=== PATIENT | female | born 1980 | race Caucasian/White ===

== ENCOUNTER 2017-10-12 21:33 | Emergency (ER) | payer OTHER ==
--- OUTSIDE RECORDS SUMMARY | 2017-10-12 22:30 | XMS REPORT ---
:1980 External Reference #:[id number] Author Organization [facility] Address [address] [place] [address] [place] [address] Phone [phone] Care Team Providers Name Role Phone Jourdan Quintana MD Primary Care Physician Unavailable Payers Type Date Identification Numbers Payment Provider Subscriber Medicaid Expires: 2015 Policy Number: [id number] Medicaid Leyda Gomez Group Name: 1 1 [address] PayID: [id number] [place] [address] Commercial Effective: 2015 Policy Number: [id number] [place] Leyda Gomez Group Name: [id number] [address] PayID: [id number] [place] [address] Problems Date Description Provider Status Onset: 12/14/2016 Low back pain Jourdan Quintana M.D. Active Onset: 12/14/2016 Epistaxis Jourdan Quintana M.D. Active Onset: 12/14/2016 Polyarthropathy Jourdan Quintana M.D. Active Onset: 12/14/2016 Malaise and fatigue Jourdan Quintana M.D. Active Onset: 01/25/2017 Mild recurrent major depression Jourdan Quintana M.D. Active Onset: 09/20/2017 Pain in female pelvis Konrad Samuels M.D. 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 ETOH Use Denies alcohol use Recreational Drug Use Denies Drug Use Smoking Patient is a former smoker Smoking Light tobacco smoker (10 or pt reports 2-3 cigaretts a fewer cigarettes/day) day while in college, quit 2009 Daily Caffeine Consumes on average 3 cups of regular coffee per day Exercise Type/Frequency Does not exercise due to abdominal pain Allergies, Adverse Reactions, Alerts Date Description Reaction Status Severity Comments 09/20/2017 Estrogens joint swelling, agitation active 09/20/2017 Opium migraine, itching active 12/14/2016 NKDA inactive Medications Medication Date Status Form Strength Qnty SIG Indications Ordering Provider Medical Active prn. for Jourdan Marijuana 017 sleep Pachikara, and pain M.D. Adderall Ir Active 30mg 1 po 3 Unknown 000 times a day Thyromin Hx Q hs Jourdan 017 - Pachikara, M.D. 018 Loratadine 0 Hx Tablets 10mg Unknown Allergy Relief 000 - Dispers 018 Vitamin B /0 Hx Tablets 1 by Unknown Complex 000 - mouth every 018 day Glucosamine 00/0 Hx Tablets 2 qd Unknown Chondroitin 000 - Complex Advanced Plus 018 MSM Vitamin C 00/0 Hx Tablets 500mg 1 by Unknown 000 - mouth every 018 day Magnesium Oxide 00/0 Hx Capsules 400mg 1 by Unknown 000 - mouth every 018 day MSM 00/00/0 Hx Capsules 500mg Unknown 000 - 018 Vital Signs Date Vital Result Comment 09/20/2017 Height 68 inches 5'8" Weight 126.00 lb w/ shoes Heart Rate 126 /min BP Systolic Sitting 148 mmHg lue rg cuff BP Diastolic Sitting 78 mmHg lue rg cuff BMI (Body Mass Index) 19.2 kg/m2 01/25/2017 Height 68 inches 5'8" Weight 137.00 lb Heart Rate 101 /min BP Systolic 122 mmHg BP Diastolic 80 mmHg Body Temperature 97.6 F O2 % BldC Oximetry 98 % BMI (Body Mass Index) 20.8 kg/m2 12/14/2016 Weight 129.25 lb Heart Rate 112 /min BP Systolic 140 mmHg BP Diastolic 80 mmHg O2 % BldC Oximetry 98 % Results Test Date Test Result H/L Range Note Laboratory test finding 12/14/2016 Rheumatoid Factor <15 IU/mL <15 1 Lyme Disease Serology Negative Negative 2 Erythrocyte Sed Rate 9 mm/Hr 0-14 Connective Tissue Panel 12/14/2016 Anti-Nuclear Antibody 0.3 U 3 Cyclic Citrullinated Peptide <15.6 U 4 Interpretation See Comment 5 Comp Metabolic Panel 12/14/2016 Sodium 135 mmol/L 133-145 Potassium 3.9 mmol/L 3.5-5.0 Chloride 101 mmol/L 101-111 Co2 Carbon Dioxide 28 mmol/L 22-32 Anion Gap 6 mmol/L 2-11 Glucose 93 mg/dL 70-100 Blood Urea Nitrogen 8 mg/dL 6-24 Creatinine 0.76 mg/dL 0.51-0.95 BUN/Creatinine Ratio 10.5 8-20 Calcium 9.4 mg/dL 8.6-10.3 Total Protein 7.0 g/dL 6.4-8.9 Albumin 4.4 g/dL 3.2-5.2 Globulin 2.6 g/dL 2-4 Albumin/Globulin Ratio 1.7 1-3 Total Bilirubin 0.70 mg/dL 0.2-1.0 Alkaline Phosphatase 40 U/L 34-104 Alt 15 U/L 7-52 Ast 24 U/L 13-39 Egfr Non- 87.1 >60 Egfr 112.0 >60 6 CBC Auto Diff 12/14/2016 White Blood Count 7.0 10^3/uL 3.5-10.8 Red Blood Count 4.05 10^6/uL 4.0-5.4 Hemoglobin 12.6 g/dL 12.0-16.0 Hematocrit 36 % 35-47 Mean Corpuscular Volume 89 fL 80-97 Mean Corpuscular Hemoglobin 31 pg 27-31 Mean Corpuscular HGB Conc 35 g/dL 31-36 Red Cell Distribution Width 13 % 10.5-15 Platelet Count 213 10^3/uL 150-450 Mean Platelet Volume 10 um3 7.4-10.4 Abs Neutrophils 4.8 10^3/uL 1.5-7.7 Abs Lymphocytes 1.6 10^3/uL 1.0-4.8 Abs Monocytes 0.5 10^3/uL 0-0.8 Abs Eosinophils 0.1 10^3/uL 0-0.6 Abs Basophils 0.1 10^3/uL 0-0.2 Abs Nucleated RBC 0 10^3/uL Granulocyte % 67.8 % 38-83 Lymphocyte % 23.4 % Low 25-47 Monocyte % 7.0 % 1-9 Eosinophil % 0.9 % 0-6 Basophil % 0.9 % 0-2 Nucleated Red Blood Cells % 0 Vitamin B12 And Folate Serum 12/14/2016 Vitamin B12 558 pg/mL 180-914 7 Folic Acid (Folate) > 20.00 ng/mL >3.99 Laboratory test finding 12/14/2016 TSH (Thyroid Stim Horm) 0.84 mcIU/mL 0.34-5.60 1 Test Performed by: [facility] - [address] [address] 2 Serologic response to B. burgdorferi infection is not detected, but cannot rule out early infection during which low or undetectable antibody levels to B. burgdorferi may be present. If clinically indicated, a new serum specimen should be submitted in 7-14 days. Test Performed by: [facility] - [place] [employer] [facility] [address] [place] [address] 3 REFERENCE VALUE <=1.0 (Negative) 4 REFERENCE VALUE <20.0 (Negative) 5 Tests for antibodies to dsDNA and BROOKE antigens are not performed automatically unless the YOSSI result is > or= 3.0 U. Studies performed at [facility] indicate that positive YOSSI results <3.0 U are rarely accompanied by positive second order tests. Test Performed by: [facility] - [address] [address] 6 Because ethnic data is not always readily available, this report includes an eGFR for both -Americans and non- Americans. The National Kidney Disease Education Program (NKDEP) does not endorse the use of the MDRD equation for patients that are not between the ages of 18 and 70, are , have extremes of body size, muscle mass, or nutritional status, or are non- or non-. According to the National Kidney Foundation, irrespective of diagnosis, the stage of the disease is based on the level of kidney function: Stage Description GFR(mL/min/1.73 m(2)) 1 Kidney damage with normal or decreased GFR 90 2 Kidney damage with mild decrease in GFR 60-89 3 Moderate decrease in GFR 30-59 4 Severe decrease in GFR 15-29 5 Kidney failure <15 (or dialysis) 7 Normal Range 180 to 914 Indeterminate Range 145 to 180 Deficient Range <145 Procedures Description No Information Encounters Type Date Location Provider CPT E/M Dx Office Visit 01/25/2017 4:00p [facility] Jourdan Quintana, [address] M54.5 - Russ Ashraf F33.0 Office Visit 12/14/2016 2:00p [facility] Jourdan Quintana, [address] M54.5 - Russ Ashraf R04.0 M13.0 R53.83 Office Visit 09/11/2015 1:53p [facility]pc Alice Turner, [address] F90.0 Hospitalists N.P. Office Visit 09/10/2015 1:53p [facility], Jessica [address] R51 Hospitalists EVANGELINA Membreno F90.0 Plan of Care 09/20/2017 - Konrad Samuels M.D.R10.2 Pelvic and perineal painNew Xrays:MRI Lumbar Spine W/OComments:The following was discussed with Leyda at the time of consultation:Some of Leyda is features are consistent with pelvic congestion syndrome potentially due to the mildly enlarged periuterine veins identified on her prior pelvic ultrasound. The subjective weakness in her right leg and "SI joint pain" is less characteristic of pelvic congestion syndrome and could be due to degenerative disease of the intervertebral discs of her lumbar spine.At the time of this dictation I think it is worthwhile to rule out a neurogenic etiology for her pain (i.e. degenerative disc disease or SI joint osteoarthritis ).If other etiologies for pain have been ruled out then the patient can be considered for tilt table venography to better determine and characterize the severity of her pelvic varicose veins.M54.5 Low back pain
[2017-10-12] MEDS ORDERED: LORazepam TAB(*) 1 MG PO ONE (22:32)
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
[2017-10-12 23:06] VITALS: BP 117/78
== END 2017-10-12 23:04 | disposition home or self-care (01) ==
LOC: ED 21:33
DX: F41.9 Anxiety disorder, unspecified (principal); Z87.891 Personal history of nicotine dependence
CPT/HCPCS: 99282; A9270-GY